=== PATIENT | female | born 1945 ===

== ENCOUNTER 2018-03-15 13:10 | Outpatient (CLI) | payer OTHER ==
[2018-03-17] MEDS ORDERED: GABAPENTIN300 MG PO (15:32)
[2018-03-17] MEDS ORDERED: SYNTHROID50 MCG PO (15:33)
[2018-03-17] MEDS ORDERED: CLARITIN10 M1 PO (15:33)
[2018-03-17] MEDS ORDERED: SINGULAIR10 MG PO (15:33)
[2018-03-17] MEDS ORDERED: FLONASE16 GM (15:33)
[2018-03-17] MEDS ORDERED: ALBUTEROL0.63 MG/3 IH (15:34)
[2018-03-17] MEDS ORDERED: VITAMIN D350000 UNIT PO (15:34)
[2018-03-17] MEDS ORDERED: [UNRECOGNIZED DRUG - OTHER] IH (15:36)
[2018-03-17] MEDS ORDERED: LISINOPRIL10 MG PO (15:36)
== END 2018-03-15 13:16 | disposition home or self-care (01) ==
LOC: LAB 13:10
DX: D68.8 Other specified coagulation defects (principal)

== ENCOUNTER 2018-03-18 07:16 | Day surgery (SDC) | payer OTHER ==
[~2018-03-18 07:16] MED LIST: ALBUTEROL0.63 MG/3 IH; CLARITIN10 M1 PO; FLONASE16 GM; GABAPENTIN300 MG PO; LISINOPRIL10 MG PO; SINGULAIR10 MG PO; SYNTHROID50 MCG PO; VITAMIN D350000 UNIT PO; [UNRECOGNIZED DRUG - OTHER] IH
== END 2018-03-18 15:45 | disposition home or self-care (01) ==
LOC: CIR.AMB 07:16
DX: M54.17 Radiculopathy, lumbosacral region (principal); M51.36 Other intervertebral disc degeneration, lumbar region; M51.37 Other intervertebral disc degeneration, lumbosacral region

== ENCOUNTER 2021-04-17 07:30 | Inpatient (IN) | payer OTHER ==
[~2021-04-17] VITALS: Ht 162.6 cm; Wt 103.9 kg
[2021-04-21] MEDS ORDERED: NABUMETONE750 MG (08:00)
[2021-04-21] MEDS ORDERED: DICLOFENAC POTA50 MG (08:01)
[2021-04-21] MEDS ORDERED: FLONASE16 GM (08:01)
[2021-04-21] MEDS ORDERED: BREO ELLIPTA I1 EACH (08:01)
[2021-04-21] MEDS ORDERED: ALLERGY RELIEF180 MG (08:01)
[2021-04-23] MEDS ORDERED: INTEGRA PLUS C1 EACH PO (06:31)
[2021-04-23] MEDS ORDERED: Septra Ds Tablet PO (06:31)
[2021-04-23] MEDS ORDERED: XARELTO10 MG PO (06:31)
[2021-04-23] MEDS ORDERED: OXYC1TAB9 PO (06:31)
== END 2021-04-23 18:00 | disposition home or self-care (01) | DRG 470 ==
LOC: O/R 04-21 05:10 → SURH 04-21 05:10
PROVIDERS: ADMIT Orthopaedic Surgery Sports Medicine; ATTEND Orthopaedic Surgery Sports Medicine
PROC: 0SRC0J9 Replacement of Right Knee Joint with Synthetic Substitute, Cemented, Open Approach (ICD-10-PCS; principal; 2021-04-21 15:30)
DX: M17.11 Unilateral primary osteoarthritis, right knee (principal); E03.8 Other specified hypothyroidism; I10 Essential (primary) hypertension; Z20.822 Contact with and (suspected) exposure to COVID-19